=== PATIENT | male | born 1945 | race Caucasian/White ===

== ENCOUNTER → 2016-06-25 | Outpatient (CLI) | payer MEDICARE, BC | LOC: MW.CHORTHO 08:00 | PROVIDERS: ATTEND Physician Assistant | DX: M75.42 Impingement syndrome of left shoulder (principal); M75.41 Impingement syndrome of right shoulder | CPT/HCPCS: 20610-50; G0463; J1040 ==

== ENCOUNTER 2017-06-26 16:15 | Inpatient (IN) | payer MEDICARE, BC ==
[2017-06-26] MEDS ORDERED: Albuterol 0.083% 2.5 MG/3 ML Neb Soln NEB PRN (16:23)
[2017-06-26] MEDS ORDERED: Sodium Chloride 0.9% 2.5 ML Syringe FLUSH PRN (16:23)
[2017-06-26] MEDS ORDERED: Metoprolol Tartrate 5 MG/5 ML SDV IVPUSH ONE (16:58)
[2017-06-26] MEDS ORDERED: Metoprolol Tartrate 25 MG Tab PO SCH (17:00)
--- NOTE | 2017-06-26 17:10 | PCM.HP ---
H&P History of Present Illness - General Date of Service: 06/26/17 Admit Problem/Dx: Admission Diagnosis/Problem Admission Diagnosis/Problem Acute kidney injury Source of Information: Patient, Family ( at bedside), Old Records (Dr Camarillo clinic records.) History Limitations: Reports: No Limitations - History of Present Illness Initial Comments - Free Text/Narative: This 71 year old male with pmh of CAD, afib with LBBB, CABG 03/2017 with post CABG EF of 40%, systolic CHF and elevated RV pressures and large L sided pleural effusion was admitted directly from Dr Camarillo's clinic secondary to BIPIN and elevated LFTs. He also reports L sided and mid sternal rib cage pain , which has been present since CABG in March. It worsens with coughing and any movement of his trunk or palpation of his chest. Sharp in nature. The dyspnea has worsened over the last week and is now unable to walk short distances. He was switched from Lasix to Bumex due to ineffectiveness and some hearing changes. He feels very dry, with dry mouth and throat. He denies lightheadedness, dizziness or palpitations, no abdominal pain or troubles urinating. No black or bloody BMs. No fevers recently. Cough produces only clear phlegm. Labwork obtained 06/25 revealed BUN 22 and Cr 2.2, Na 143, K+ 2.9, ALT 122, AST 142 and Alk phos 235, BNP 974. CXR obtained today 06/26 revealed moderate to large L sided pleural effusion, unchanged from 06/16/17. Upon arrival to Med/Surg HR ausculated in 150s. EKG obtained which revealed Afib rates 130 with LBBB. he denies palpitations or feeling of HR elevated. No dizziness. - Related Data Allergies/Adverse Reactions: Allergies Allergy/AdvReac Type Severity Reaction Status Date / Time No Known Allergies Allergy Verified 06/26/17 17:55 Home Medications: Home Meds Aspirin 81 mg PO DAILY 06/26/17 [History] ClonazePAM [KlonoPIN] 0.5 mg PO BEDTIME 06/26/17 [History] Pantoprazole Sodium 40 mg PO DAILY 06/26/17 [History] traMADol HCl [Tramadol HCl] 50 mg PO TID PRN 06/26/17 [History] Past Medical History Cardiovascular History: Reports: Afib, Bypass (03/2017), CAD, Heart Failure, High Cholesterol, Hypertension Respiratory History: Reports: SOB (exertional) Gastrointestinal History: Reports: GERD Genitourinary History: Reports: None Musculoskeletal History: Reports: Arthritis Psychiatric History: Reports: Anxiety Endocrine/Metabolic History: Denies: Diabetes, Type II Hematologic History: Reports: Anticoagulation Therapy (Xarelto) - Past Surgical History Cardiovascular Surgical History: Reports: Cardiac Ablation, Coronary Artery Bypass Social & Family History - Tobacco Use Smoking Status *Q: Never Smoker - Alcohol Use Alcohol Use History: No - Recreational Drug Use Recreational Drug Use: No - Living Situation & Occupation Living situation: Reports: Occupation: Retired H&P Review of Systems - Review of Systems: Review Of Systems: See Below General: Reports: Malaise, Fatigue. Denies: Fever, Chills HEENT: Reports: No Symptoms. Denies: Headaches, Sinus Congestion, Sore Throat, Vertigo Pulmonary: Reports: Shortness of Breath, Cough, Sputum (clear). Denies: Hemoptysis Cardiovascular: Reports: Chest Pain (with movement of trunk and coughing to bilateral rib cage), Dyspnea on Exertion, Edema (BLE). Denies: Palpitations Gastrointestinal: Reports: No Symptoms. Denies: Abdominal Pain, Black Stool, Bloody Stool, Diarrhea, Nausea, Vomiting Genitourinary: Reports: No Symptoms. Denies: Dysuria, Frequency, Burning, Pain Musculoskeletal: Reports: No Symptoms. Denies: Neck Pain Skin: Reports: No Symptoms. Denies: Erythema Psychiatric: Reports: Anxiety Neurological: Reports: No Symptoms Hematologic/Lymphatic: Reports: No Symptoms Immunologic: Reports: No Symptoms Exam - Exam Exam: See Below - Exam Quality Assessment: DVT Prophylaxis (SCDs only) General: Alert, Oriented, Cooperative HEENT: Conjunctiva Clear, Pupils Reactive. No: Mucosa Moist & [place] (dry) Neck: Supple, Trachea Midline, 2 Lungs: Decreased Breath Sounds (to L lower lobe) Cardiovascular: Normal S1, Normal S2, Irregular Rhythm, Tachycardia (rates 150s) GI/Abdominal Exam: Normal Bowel Sounds, Soft, Non-Tender, No Organomegaly, No Distention, No Abnormal Bruit, No Mass, Pelvis Stable Extremities: Normal Inspection, Normal Range of Motion, Pedal Edema (+2-3 pitting edema extending from bilateral hips to feet) Skin: Other (well healed sternal incision and chest tube sites. this is where chest pain is located and hurts with palpation.) Neurological: Cranial Nerves Intact Neuro Extensive - Mental Status: Alert, Oriented x3, Normal Mood/Affect, Normal Cognition Neuro Extensive - Motor, Sensory, Reflexes: CN II-XII Intact Psychiatric: Alert, Anxious - Patient Data Result Diagrams: 06/26/17 17:00 06/26/17 17:00 EKG INTERPRETATION EKG Date: 06/26/17 Rhythm: A-Fib Rate (Beats/Min): 130 QRS: LBBB Comparison: No Change *Q Meaningful Use (ADM) - VTE Risk Assess *Q Each Risk Factor Represents 1 Point: Congestive heart failure (CHF) Total Score 1 Point Risk Factors: 1 Each Risk Factor Represents 2 Points: Age 60 - 74 Years Total Score 2 Point Risk Factors: 2 Each Risk Factor Represents 3 Points: None Total Score 3 Point Risk Factors: 0 Each Risk Factor Represents 5 Points: None Total Score 5 Point Risk Factors: 0 Venous Thromboembolism Risk Factor Score *Q: 3 - Problem List (1) BIPIN (acute kidney injury) SNOMED Code(s): 59828553 ICD Code: N17.9 - ACUTE KIDNEY FAILURE, UNSPECIFIED Status: Acute Current Visit: Yes (2) Chronic atrial fibrillation with RVR SNOMED Code(s): 803115439, 058725636192192 ICD Code: I48.2 - CHRONIC ATRIAL FIBRILLATION Status: Acute Current Visit : Yes (3) Dyspnea SNOMED Code(s): 753582707 ICD Code: R06.00 - DYSPNEA, UNSPECIFIED Status: Acute Current Visit: Yes (4) Pleural effusion SNOMED Code(s): 15743729 ICD Code: J90 - PLEURAL EFFUSION, NOT ELSEWHERE CLASSIFIED Status: Acute Current Visit: Yes (5) Elevated LFTs SNOMED Code(s): 452034372, 094156532 ICD Code: R79.89 - OTHER SPECIFIED ABNORMAL FINDINGS OF BLOOD CHEMISTRY Status: Acute Current Visit: Yes (6) Anxiety SNOMED Code(s): 60405779 ICD Code: F41.9 - ANXIETY DISORDER, UNSPECIFIED Status: Chronic Current Visit: Yes (7) CAD (coronary artery disease) SNOMED Code(s): 65135082 ICD Code: I25.10 - ATHSCL HEART DISEASE OF [place] CORONARY ARTERY W/O ANG PCTRS Status: Chronic Current Visit: Yes (8) Hx of CABG SNOMED Code(s): 785357275, 969724246 ICD Code: Z95.1 - PRESENCE OF AORTOCORONARY BYPASS GRAFT Status: Chronic Current Visit: Yes (9) Depression SNOMED Code(s): 99624338 ICD Code: F32.9 - MAJOR DEPRESSIVE DISORDER, SINGLE EPISODE, UNSPECIFIED Status: Chronic Current Visit: Yes (10) Chronic a-fib SNOMED Code(s): 858889711 ICD Code: I48.2 - CHRONIC ATRIAL FIBRILLATION Status: Acute Current Visit : Yes (11) Ischemic dilated cardiomyopathy SNOMED Code(s): 616705880 ICD Code: I25.5 - ISCHEMIC CARDIOMYOPATHY; I42.0 - DILATED CARDIOMYOPATHY Status: Chronic Current Visit: Yes (12) Musculoskeletal chest pain SNOMED Code(s): 431138833 ICD Code: R07.89 - OTHER CHEST PAIN Status: Chronic Current Visit: Yes (13) HTN (hypertension) SNOMED Code(s): 45309451 ICD Code: I10 - ESSENTIAL (PRIMARY) HYPERTENSION Status: Chronic Current Visit: Yes Qualifiers: Hypertension type: essential hypertension Qualified Code(s): I10 - Essential (primary) hypertension (14) CHF (congestive heart failure) SNOMED Code(s): 18306187 ICD Code: I50.9 - HEART FAILURE, UNSPECIFIED Status: Chronic Current Visit: Yes Qualifiers: Heart failure type: systolic Heart failure chronicity: chronic Qualified Code(s): I50.22 - Chronic systolic (congestive) heart failure Problem List Initiated/Reviewed/Updated: Yes Orders Last 24hrs: Active Orders 24 hr Category Date Time Status Patient Status [ADT] Routine ADT 06/26/17 16:23 Ordered EKG 12 Lead [EKG Documentation Completion] [RC] STAT Care 06/26/17 17:01 Ordered Height and Weight [RC] DAILY Care 06/26/17 16:23 Ordered Intake and Output Strict [RC] ASDIRECTED Care 06/26/17 16:32 Ordered Intake and Output [RC] QSHIFT Care 06/26/17 16:24 Inactive Oxygen Therapy [RC] PRN Care 06/26/17 16:23 Ordered RT Aerosol Therapy [RC] ASDIRECTED Care 06/26/17 16:30 Ordered Telemetry Monitoring [Cardiac Monitoring] [RC] . Care 06/26/17 17:02 Ordered DIRECTED Up With Assistance [RC] ASDIRECTED Care 06/26/17 16:23 Ordered VTE/DVT Education [RC] PER UNIT ROUTINE Care 06/26/17 16:23 Ordered Vital Signs [RC] Q4H Care 06/26/17 16:23 Ordered 2 Gram Sodium Diet [DIET] Diet 06/26/17 Dinner Ordered Chest wo Cont [CT] Urgent Exams 06/26/17 16:23 Ordered Echo Comp wo Cont [US] Routine Exams 06/26/17 16:23 Ordered Thoracentesis W/ US Guide [US] Routine Exams 06/26/17 17:03 Ordered CBC WITH AUTO DIFF [HEME] Routine Lab 06/26/17 16:23 Ordered COMPREHENSIVE METABOLIC PN,CMP [CHEM] Routine Lab 06/26/17 16:23 Ordered Albuterol [Proventil Neb Soln] Med 06/26/17 16:23 Ordered 2.5 mg NEB Q2H PRN Metoprolol Tartrate [Lopressor] Med 06/26/17 17:00 Ordered 25 mg PO Q12HR Ondansetron [Zofran] Med 06/26/17 16:23 Ordered 4 mg IVPUSH Q4H PRN Sodium Chloride 0.9% [Normal Saline] 1,000 ml Med 06/26/17 16:30 Ordered IV ASDIRECTED Sodium Chloride 0.9% [Saline Flush] Med 06/26/17 16:23 Ordered 2.5 ml FLUSH ASDIRECTED PRN oxyCODONE Med 06/26/17 16:59 Ordered 5 mg PO Q6H PRN Saline Lock Insert [OM.PC] Routine Oth 06/26/17 16:23 Ordered Sequential Compression Device [OM.PC] Per Unit Routine Oth 06/26/17 16:24 Ordered Resuscitation Status Routine Resus Stat 06/26/17 17:03 Ordered Medication Orders Albuterol (Proventil Neb Soln) 2.5 mg NEB Q2H PRN PRN Reason: Shortness Of Breath/wheezing Sodium Chloride (Normal Saline) 1,000 mls @ 75 mls/hr IV ASDIRECTED SANDRO Metoprolol Tartrate (Lopressor) 25 mg PO Q12HR SANDRO Ondansetron HCl (Zofran) 4 mg IVPUSH Q4H PRN PRN Reason: Nausea Oxycodone HCl (Oxycodone) 5 mg PO Q6H PRN PRN Reason: Pain Sodium Chloride (Saline Flush) 2.5 ml FLUSH ASDIRECTED PRN PRN Reason: Keep Vein Open Assessment/Plan Comment:: This 71 year old male admitted with BIPIN secondary to diuretic use with pmh of CAD, CHF, Afib, and L sided pleural effusion 1. BIPIN: likely secondary to over diuresis. Will hold Bumex. Gentle hydration with NS 75. BUN 22 Cr 2.4, baseline near 1.3. 2. Chronic Afib with RVR: HR on admission elevated 130-150s, asymptomatic. Spoke with Dr Camarillo. Recommended Lopressor, reports he had reaction to this and it was stopped, unknown reaction, will check records at [place]. Consulted with Dr Xu johnston, Ok to give Diltiazem 10 mg IV PRN and recommended to start Coreg 3.125 mg BID tonight. Monitor on telemetry. K+ 2.6, will give 40 po now and 40 IV in 500 ml NS this evening, Magnesium pending. Holding Xarelto due to elevated LFTs. HR improved to 80s after IV Diltiazem. 3. CHF: EF 40% post CABG. Will obtain new ECHO during admission. Continues to have BLE edema, but very intravascularly dry. 4. Dyspnea/L sided pleural effusion: Will have thoracentesis tomorrow. Chest CT without contrast this evening, pending. 5. Elevated LFTs: Hold Crestor and Xarelto for now. Will monitor daily. AST 266 , ALT 211, Bilirubin 1.2 and Alk phos 240. 6. Anxiety/Depression: Continue Clonazepam. Monitor 7. CAD: Stable: ECHO pending. Holding Statin due to elevated LFTs. Hx CABG. Will monitor. 8. Musculoskeletal chest pain: Secondary to CABG, reports Tramadol not working at home. Unable to give NSAIDs or Tylenol. Will trial Oxycodone 5 mg and monitor. patient and request NO Morphine. VTE prophylaxis: Holding Xarelto. SCDs for now. Dispo: 2-3 days pending improvement.
[2017-06-26] MEDS ORDERED: Diltiazem 25 MG/5 ML SDV IVPUSH ONE (17:18)
[2017-06-26] MEDS ORDERED: Diltiazem 25 MG/5 ML SDV IVPUSH PRN (17:19)
[2017-06-26] MEDS: oxyCODONE 5 MG Tab PO PRN ×2 (17:36→23:54)
[2017-06-26 17:46] LABS: CHLORIDE,CL 99 mmol/L (98-107); SODIUM,NA 138 mmol/L (136-148)
[2017-06-26] MEDS ORDERED: Magnesium Sulfate/Water 2 GM in Premix Bag 1 BAG IV ONE (18:09)
[2017-06-26] MEDS ORDERED: Potassium Chloride 40 MEQ in Sodium Chloride 0.9% 500 ML IV SCH (18:15)
[2017-06-26] MEDS: Potassium Chloride 20 MEQ Tab.ER PO SCH ×2 (18:19→21:44)
[2017-06-26] MEDS: Carvedilol 3.125 MG Tab PO SCH (21:44)
[2017-06-26] MEDS: ClonazePAM 0.5 MG Tab PO SCH (21:44)
[2017-06-26] MEDS: Diltiazem 25 MG/5 ML SDV IVPUSH PRN (21:45)
[2017-06-26] MEDS: Ondansetron 4 MG/2 ML SDV IVPUSH PRN (23:52)
[2017-06-27] MEDS: Sodium Chloride 0.9% 1,000 ML IV SCH ×2 (05:12→17:52)
[2017-06-27] MEDS: Ondansetron 4 MG/2 ML SDV IVPUSH PRN ×3 (05:30→18:10)
[2017-06-27] MEDS: oxyCODONE 5 MG Tab PO PRN ×3 (05:32→20:08)
[2017-06-27] MEDS: Pantoprazole 40 MG Tab.CR PO SCH (06:54)
--- NOTE | 2017-06-27 08:07 | PCM.PN ---
- General Info Date of Service: 06/27/17 Admission Dx/Problem (Free Text): Admission Diagnosis/Problem Admission Diagnosis/Problem Acute kidney injury Subjective Update: Feeling "so-so" this morning. musculoskeletal chest pain is better controlled with Oxycodone. Coughing has decreased slightly since pain controlled better as well. Feeling a little more hydrated this morning, mouth is less dry. Functional Status: Reports: Pain Controlled, Tolerating Diet, Urinating - Review of Systems General: Reports: Malaise HEENT: Denies: Headaches, Sore Throat, Visual Changes Pulmonary: Reports: Shortness of Breath, Cough, Sputum (clear). Denies: Wheezing Cardiovascular: Reports: Chest Pain (musculoskeletal), Edema Gastrointestinal: Reports: Decreased Appetite, Nausea (intermittent). Denies: Abdominal Pain, Vomiting Genitourinary: Reports: No Symptoms. Denies: Dysuria, Frequency Musculoskeletal: Reports: No Symptoms. Denies: Neck Pain Skin: Reports: No Symptoms Neurological: Reports: No Symptoms Psychiatric: Reports: Anxiety - Patient Data Vitals - Most Recent: Last Vital Signs Temp 98.7 F 06/27/17 04:00 Pulse 95 06/27/17 04:00 Resp 22 H 06/27/17 04:00 BP 127/90 06/27/17 04:00 Pulse Ox 95 06/27/17 04:00 Weight - Most Recent: 69 kg I&O - Last 24 Hours: Intake & Output 06/26/17 06/27/17 06/27/17 22:59 06:59 14:59 Intake Total 790 Output Total 150 Balance 640 Lab Results Last 24 Hours: Laboratory Results - last 24 hr 06/26/17 06/26/17 06/26/17 Range/Units 17:00 17:00 17:00 WBC 10.44 (4.0-11.0) K/uL RBC 4.75 (4.50-5.90) M/uL Hgb 13.8 (13.0-17.0) g/dL Hct 42.4 (38.0-50.0) % MCV 89.3 (80.0-98.0) fL MCH 29.1 (27.0-32.0) pg MCHC 32.5 (31.0-37.0) g/dL RDW Std Deviation 55.2 (28.0-62.0) fl RDW Coeff of Windy 17 H (11.0-15.0) % Plt Count 220 (150-400) K/uL MPV 9.60 (7.40-12.00) fL Neut % (Auto) 70.2 (48.0-80.0) % Lymph % (Auto) 15.0 L (16.0-40.0) % [place] % (Auto) 14.5 (0.0-15.0) % Eos % (Auto) 0.1 (0.0-7.0) % Baso % (Auto) 0.2 (0.0-1.5) % Neut # (Auto) 7.3 H (1.4-5.7) K/uL Lymph # (Auto) 1.6 (0.6-2.4) K/uL [place] # (Auto) 1.5 H (0.0-0.8) K/uL Eos # (Auto) 0.0 (0.0-0.7) K/uL Baso # (Auto) 0.0 (0.0-0.1) K/uL Add Manual Diff Neutrophils % (Manual) (48.0-80.0) % Lymphocytes % (Manual) (16.0-40.0) % Monocytes % (Manual) (0.0-15.0) % Basophils % (Manual) (0.0-1.5) % Nucleated RBC % 0.0 /100WBC Absolute Seg Neuts (1.4-5.7) Lymphocytes # (Manual) (0.6-2.4) Monocytes # (Manual) (0.0-0.8) Basophils # (Manual) (0.0-0.1) Nucleated RBCs # 0 K/uL Sodium 138 (136-148) mmol/L Potassium 2.6 L (3.5-5.1) mmol/L Chloride 99 (98-107) mmol/L Carbon Dioxide 23.5 (21.0-32.0) mmol/L BUN 22 H (7.0-18.0) mg/dL Creatinine 2.4 H (0.8-1.3) mg/dL Est Cr Clr Drug Dosing TNP Estimated GFR (MDRD) 26.7 ml/min Glucose 110 H (74-106) mg/dL Calcium 9.4 (8.5-10.1) mg/dL Magnesium 1.6 (1.5-2.0) mg/dL Total Bilirubin 1.2 H (0.2-1.0) mg/dL AST 266 H (15-37) IU/L ALT 211 H (14-63) IU/L Alkaline Phosphatase 240 H (46-116) U/L Total Protein 7.1 (6.4-8.2) g/dL Albumin 3.2 L (3.4-5.0) g/dL Globulin 3.9 H (2.0-3.5) g/dL Albumin/Globulin Ratio 0.8 L (1.3-2.8) 06/27/17 06/27/17 Range/Units 05:05 05:05 WBC 8.73 (4.0-11.0) K/uL RBC 4.59 (4.50-5.90) M/uL Hgb 13.4 (13.0-17.0) g/dL Hct 41.5 (38.0-50.0) % MCV 90.4 (80.0-98.0) fL MCH 29.2 (27.0-32.0) pg MCHC 32.3 (31.0-37.0) g/dL RDW Std Deviation 55.8 (28.0-62.0) fl RDW Coeff of Windy 17 H (11.0-15.0) % Plt Count 197 (150-400) K/uL MPV 9.80 (7.40-12.00) fL Neut % (Auto) (48.0-80.0) % Lymph % (Auto) (16.0-40.0) % [place] % (Auto) (0.0-15.0) % Eos % (Auto) (0.0-7.0) % Baso % (Auto) (0.0-1.5) % Neut # (Auto) (1.4-5.7) K/uL Lymph # (Auto) (0.6-2.4) K/uL [place] # (Auto) (0.0-0.8) K/uL Eos # (Auto) (0.0-0.7) K/uL Baso # (Auto) (0.0-0.1) K/uL Add Manual Diff YES Neutrophils % (Manual) 61 (48.0-80.0) % Lymphocytes % (Manual) 22 (16.0-40.0) % Monocytes % (Manual) 16 H (0.0-15.0) % Basophils % (Manual) 1 (0.0-1.5) % Nucleated RBC % 0.0 /100WBC Absolute Seg Neuts 5.3 (1.4-5.7) Lymphocytes # (Manual) 1.9 (0.6-2.4) Monocytes # (Manual) 1.4 H (0.0-0.8) Basophils # (Manual) 0.1 (0.0-0.1) Nucleated RBCs # 0 K/uL Sodium 139 (136-148) mmol/L Potassium 3.7 (3.5-5.1) mmol/L Chloride 102 (98-107) mmol/L Carbon Dioxide 25.5 (21.0-32.0) mmol/L BUN 26 H (7.0-18.0) mg/dL Creatinine 2.4 H (0.8-1.3) mg/dL Est Cr Clr Drug Dosing 23.30 Estimated GFR (MDRD) 26.7 ml/min Glucose 111 H (74-106) mg/dL Calcium 9.0 (8.5-10.1) mg/dL Magnesium 2.4 H (1.5-2.0) mg/dL Total Bilirubin 1.1 H (0.2-1.0) mg/dL AST 483 H (15-37) IU/L ALT 331 H (14-63) IU/L Alkaline Phosphatase 205 H (46-116) U/L Total Protein 6.4 (6.4-8.2) g/dL Albumin 2.8 L (3.4-5.0) g/dL Globulin 3.6 H (2.0-3.5) g/dL Albumin/Globulin Ratio 0.8 L (1.3-2.8) Med Orders - Current: Current Medications Albuterol (Proventil Neb Soln) 2.5 mg NEB Q2H PRN PRN Reason: Shortness Of Breath/wheezing Carvedilol (Coreg) 3.125 mg PO BID [facility] Last Admin: 06/26/17 21:44 Dose: 3.125 mg Clonazepam (Klonopin) 0.5 mg PO BEDTIME [facility] Last Admin: 06/26/17 21:44 Dose: 0.5 mg Diltiazem HCl (Diltiazem) 10 mg IVPUSH Q3H PRN PRN Reason: afib HR>110 Last Admin: 06/26/17 21:45 Dose: 10 mg Sodium Chloride (Normal Saline) 1,000 mls @ 75 mls/hr IV ASDIRECTED [facility] Last Admin: 06/27/17 05:12 Dose: 75 mls/hr Ondansetron HCl (Zofran) 4 mg IVPUSH Q4H PRN PRN Reason: Nausea Last Admin: 06/27/17 05:30 Dose: 4 mg Oxycodone HCl (Oxycodone) 5 mg PO Q6H PRN PRN Reason: Pain Last Admin: 06/27/17 05:32 Dose: 5 mg Pantoprazole Sodium (Protonix) 40 mg PO DAILY@0700 [facility] Last Admin: 06/27/17 06:54 Dose: 40 mg Potassium Chloride (Klor-Con M20) 40 meq PO BID [facility] Last Admin: 06/26/17 21:44 Dose: Not Given Sodium Chloride (Saline Flush) 2.5 ml FLUSH ASDIRECTED PRN PRN Reason: Keep Vein Open Discontinued Medications Diltiazem HCl (Diltiazem) 10 mg IVPUSH ONETIME ONE Stop: 06/26/17 17:19 Last Admin: 06/26/17 17:38 Dose: 10 mg Diltiazem HCl (Diltiazem) 10 mg IVPUSH Q6H PRN PRN Reason: afib HR>110 Potassium Chloride 40 meq/ (Sodium Chloride) 520 mls @ 100 mls/hr IV .ONETIME [facility] Last Admin: 06/26/17 18:20 Dose: 100 mls/hr Magnesium Sulfate 2 gm/ Premix 50 mls @ 50 mls/hr IV ONETIME ONE Stop: 06/26/17 19:08 Last Admin: 06/26/17 18:21 Dose: 50 mls/hr Metoprolol Tartrate (Lopressor) 5 mg IVPUSH STAT ONE Stop: 06/26/17 16:59 Last Admin: 06/26/17 17:38 Dose: Not Given Metoprolol Tartrate (Lopressor) 25 mg PO Q12HR [facility] Last Admin: 06/26/17 17:39 Dose: Not Given - Exam General: Alert, Oriented, Cooperative, No Acute Distress Lungs: Clear to Auscultation, Normal Respiratory Effort Cardiovascular: Regular Rate, Irregular Rhythm GI/Abdominal Exam: Normal Bowel Sounds, Soft, Non-Tender, No Organomegaly, No Distention, No Abnormal Bruit, No Mass, Pelvis Stable Back Exam: Normal Inspection, Full Range of Motion Extremities: Normal Inspection, Normal Range of Motion, Non-Tender, Normal Capillary Refill, Pedal Edema (+3 pitting edema to BLE extending up to bilateral hips) Neurological: No New Focal Deficit Psy/Mental Status: Alert, Normal Mood, Anxious (intermittently) - Problem List & Annotations (1) BIPIN (acute kidney injury) SNOMED Code(s): 16303648 Code(s): N17.9 - ACUTE KIDNEY FAILURE, UNSPECIFIED Status: Acute Current Visit: Yes (2) Chronic atrial fibrillation with RVR SNOMED Code(s): 413342946, 715445664804717 Code(s): I48.2 - CHRONIC ATRIAL FIBRILLATION Status: Acute Current Visit : Yes (3) Dyspnea SNOMED Code(s): 701542419 Code(s): R06.00 - DYSPNEA, UNSPECIFIED Status: Acute Current Visit: Yes (4) Pleural effusion SNOMED Code(s): 07513821 Code(s): J90 - PLEURAL EFFUSION, NOT ELSEWHERE CLASSIFIED Status: Acute Current Visit: Yes (5) Elevated LFTs SNOMED Code(s): 122211654, 252646128 Code(s): R79.89 - OTHER SPECIFIED ABNORMAL FINDINGS OF BLOOD CHEMISTRY Status: Acute Current Visit: Yes (6) Anxiety SNOMED Code(s): 67638285 Code(s): F41.9 - ANXIETY DISORDER, UNSPECIFIED Status: Chronic Current Visit: Yes (7) CAD (coronary artery disease) SNOMED Code(s): 92608460 Code(s): I25.10 - ATHSCL HEART DISEASE OF [place] CORONARY ARTERY W/O ANG PCTRS Status: Chronic Current Visit: Yes (8) Hx of CABG SNOMED Code(s): 786723074, 072026968 Code(s): Z95.1 - PRESENCE OF AORTOCORONARY BYPASS GRAFT Status: Chronic Current Visit: Yes (9) Depression SNOMED Code(s): 50247735 Code(s): F32.9 - MAJOR DEPRESSIVE DISORDER, SINGLE EPISODE, UNSPECIFIED Status: Chronic Current Visit: Yes (10) Chronic a-fib SNOMED Code(s): 898333575 Code(s): I48.2 - CHRONIC ATRIAL FIBRILLATION Status: Acute Current Visit : Yes (11) Ischemic dilated cardiomyopathy SNOMED Code(s): 613691129 Code(s): I25.5 - ISCHEMIC CARDIOMYOPATHY; I42.0 - DILATED CARDIOMYOPATHY Status: Chronic Current Visit: Yes (12) Musculoskeletal chest pain SNOMED Code(s): 424543976 Code(s): R07.89 - OTHER CHEST PAIN Status: Chronic Current Visit: Yes (13) HTN (hypertension) SNOMED Code(s): 54988626 Code(s): I10 - ESSENTIAL (PRIMARY) HYPERTENSION Status: Chronic Current Visit: Yes Qualifiers: Hypertension type: essential hypertension Qualified Code(s): I10 - Essential (primary) hypertension (14) CHF (congestive heart failure) SNOMED Code(s): 27121460 Code(s): I50.9 - HEART FAILURE, UNSPECIFIED Status: Chronic Current Visit : Yes Qualifiers: Heart failure type: systolic Heart failure chronicity: chronic Qualified Code(s): I50.22 - Chronic systolic (congestive) heart failure - Problem List Review Problem List Initiated/Reviewed/Updated: Yes - My Orders Last 24 Hours: My Active Orders 06/26/17 16:23 Patient Status [ADT] Routine Height and Weight [RC] DAILY Oxygen Therapy [RC] PRN Up With Assistance [RC] ASDIRECTED Vital Signs [RC] Q4H Chest wo Cont [CT] Urgent Albuterol [Proventil Neb Soln] 2.5 mg NEB Q2H PRN Ondansetron [Zofran] 4 mg IVPUSH Q4H PRN Sodium Chloride 0.9% [Saline Flush] 2.5 ml FLUSH ASDIRECTED PRN Saline Lock Insert [OM.PC] Routine 06/26/17 16:24 Intake and Output [RC] QSHIFT Sequential Compression Device [OM.PC] Per Unit Routine 06/26/17 16:30 RT Aerosol Therapy [RC] ASDIRECTED Sodium Chloride 0.9% [Normal Saline] 1,000 ml IV ASDIRECTED 06/26/17 16:32 Intake and Output Strict [RC] ASDIRECTED 06/26/17 16:59 oxyCODONE 5 mg PO Q6H PRN 06/26/17 17:02 Telemetry Monitoring [Cardiac Monitoring] [RC] Q8H 06/26/17 17:03 Resuscitation Status Routine 06/26/17 18:11 GRACE Hose [Antiembolic Hose] [OM.PC] Routine 06/26/17 18:15 Potassium Chloride [Klor-Con M20] 40 meq PO BID 06/26/17 21:00 Carvedilol [Coreg] 3.125 mg PO BID ClonazePAM [KlonoPIN] 0.5 mg PO BEDTIME 06/26/17 Dinner 2 Gram Sodium Diet [DIET] 06/27/17 Thoracentesis W/ US Guide [US] Routine 06/27/17 07:00 Pantoprazole [ProTONIX] 40 mg PO DAILY@0700 06/27/17 08:05 Communication Order [RC] PRN 06/27/17 16:23 Echo Comp wo Cont [US] Routine 06/28/17 05:11 CBC WITH AUTO DIFF [HEME] AM COMPREHENSIVE METABOLIC PN,CMP [CHEM] AM MG [MAGNESIUM] [CHEM] AM 06/29/17 05:11 CBC WITH AUTO DIFF [HEME] AM COMPREHENSIVE METABOLIC PN,CMP [CHEM] AM MG [MAGNESIUM] [CHEM] AM 06/30/17 05:11 CBC WITH AUTO DIFF [HEME] AM COMPREHENSIVE METABOLIC PN,CMP [CHEM] AM MG [MAGNESIUM] [CHEM] AM - Plan Plan:: This 71 year old male admitted with BIPIN secondary to diuretic use with pmh of CAD, CHF, Afib, and L sided pleural effusion 1. BIPIN: possibly due to over diuresis. Will hold Bumex. Gentle hydration with NS 75. BUN 26 Cr 2.4. Continue to monitor. 2. Chronic Afib with RVR: HR improved slightly with PRN Diltiazem, Coreg 3.125 mg BID started per Dr Camarillo. HR overnight 90-110s, afib. Continue on telemetry. K+ 3.7 this morning. Mg 2.4. Holding Xarelto due to elevated LFTs. 3. CHF: EF 40% post CABG. ECHO this morning with Dr Polk await to hear results and recommendations. Continues to have severe BLE edema 4. Dyspnea/L sided pleural effusion: Will have thoracentesis today. Chest CT without contrast this evening, pending. 5. Elevated LFTs: Hold Crestor and Xarelto for now. Will monitor daily. Increased since yesterday AST 483, ALT 331, Bilirubin 1.1 and Alk phos 205. 6. Anxiety/Depression: Continue Clonazepam. Monitor 7. CAD: Stable: ECHO pending. Holding Statin due to elevated LFTs. Hx CABG. Will monitor. 8. Musculoskeletal chest pain: Secondary to CABG, reports Tramadol not working at home. Unable to give NSAIDs or Tylenol. Will trial Oxycodone 5 mg and monitor. patient and request NO Morphine. VTE prophylaxis: Holding Xarelto. SCDs for now. Dispo: 2-3 days pending improvement. Spoke with PCP, Dr Sanchez, this morning. Discussed past labwork, May 27 LFTs normal at this time along with renal function, BUN 8 and Cr 0.8. He was able to find in Dr. Hatfield records that Metoprolol was stopped December 2016 due to worsening depression. Verapamil 180 was started but they considered stopping this as well due to worsening peripheral edema. Verapamil was stopped recently per Dr Camarillo's clinic notes.
[2017-06-27] MEDS: Carvedilol 3.125 MG Tab PO SCH ×2 (09:09→20:07)
[2017-06-27] MEDS: Potassium Chloride 20 MEQ Tab.ER PO SCH ×2 (09:09→20:11)
[2017-06-27] MEDS ORDERED: ClonazePAM 0.5 MG Tab PO ONE (09:13)
--- NOTE | 2017-06-27 14:55 | CT ---
EXAM DATE: 06/26/17 PATIENT'S AGE: 71 Patient: JANNA MAGUIRE Facility: [place], [place] Site . Site : 1945 Study: CT Chest [id number]/3/2018 7:35:13 PM Ordering Physician: Roxi Boone Final Report: INDICATION: Dyspnea, pleural effusion TECHNIQUE: CT chest without i.v. contrast. Coronal and sagittal reformats were obtained. CONTRAST: None COMPARISON: None FINDINGS: Cardiovascular: Mild cardiomegaly is noted with moderate enlargement of the right atrium. Severe atherosclerotic calcifications are noted in the coronary arteries. Previous median sternotomy and placement of a left atrial appendage ligation clip. The pulmonary arteries are unremarkable in appearance. No sign of aneurysm seen in the thoracic aorta. The presence of aortic dissection cannot be evaluated without the use of intravenous contrast. Mediastinum: No mass or adenopathy seen. Lungs: Compressive atelectasis of most of the left lower lobe and lateral lingula is noted. Linear scarring is seen within the right middle lobe. Mild passive atelectasis is present in the right lung base. Pleura and pericardium: There is a large left and small right pleural effusion present. No significant pericardial effusion is present. Chest wall and axilla: No mass or adenopathy seen. Bones: Unremarkable for age. Upper abdomen: Unremarkable. IMPRESSION: 1. There is a large left and small right pleural effusion present causing compressive atelectasis of most of the left lower lobe and lateral lingula. Dictated by Blake Benavides MD @ 06/26/2017 7:54:50 PM Please note that all CT scans at this facility use dose modulation, iterative reconstruction, and/or weight-based dosing when appropriate to reduce radiation dose to as low as reasonably achievable. Dictated by: Blake Benavides MD @ 06/26/2017 19:54:54 (Electronic Signature) Report Signed by Proxy. [facility]
--- NOTE | 2017-06-27 16:15 | US ---
EXAMINATION: Ultrasound guided left thoracentesis. HISTORY: Left pleural effusion. Technique/findings: The procedure, benefits and risks were discussed with the patient. Risks include d serious bleeding, infection and pain. An adequate location was located within the left posterior lo wer thorax. The overlying area was sterilely prepped and draped. 1% lidocaine was administered for lo patsy anesthesia. Using guidance and care to place a needle on the superior aspect of the adjacent rib a 5 [place] one-step needle was advanced until fluid return was noted. Approximately 1000 mL of bloody fluid was collected. The patient did have a considerable amount of coughing following the procedure. Which did somewhat improved from before returning to the floor. IMPRESSION: Successful ultrasound guided left thoracentesis. Fluid was bloody.
[2017-06-27] MEDS: ClonazePAM 0.5 MG Tab PO SCH (21:57)
[2017-06-28] MEDS: Diltiazem 25 MG/5 ML SDV IVPUSH PRN ×2 (00:41→14:00)
[2017-06-28] MEDS: ClonazePAM 0.5 MG Tab PO SCH (01:34)
[2017-06-28] MEDS ORDERED: cefTRIAXone 1 GM in Premix Bag 1 BAG IV SCH (02:00)
[2017-06-28] MEDS ORDERED: cefTRIAXone 1 GM in Sodium Chloride 0.9% 50 ML IV SCH (03:00)
[2017-06-28] MEDS: oxyCODONE 5 MG Tab PO PRN ×2 (03:12→08:44)
[2017-06-28] MEDS: Pantoprazole 40 MG Tab.CR PO SCH (06:12)
[2017-06-28] MEDS: Sodium Chloride 0.9% 1,000 ML IV SCH (07:51)
[2017-06-28] MEDS: Carvedilol 3.125 MG Tab PO SCH (08:45)
[2017-06-28] MEDS: Potassium Chloride 20 MEQ Tab.ER PO SCH (09:21)
--- NOTE | 2017-06-28 12:46 | CONS ---
DATE OF CONSULTATION: DATE OF : 1945 PRIMARY CARE PHYSICIAN: NAMAN GILMAN MD REASON FOR CONSULTATION: Heart failure, elevation in renal function, elevation in liver function. HISTORY: This is a 71-year-old male who has a history of hypertension, hyperlipidemia, family history of CAD, permanent atrial fibrillation, and also with left bundle- branch block pattern. He was initially seeing Dr. Martinez for exertional shortness of breath without chest pain and abnormal EKG, subsequently he underwent an exercise testing showing ischemia along with anterior and apical and septal wall. Then, he underwent a coronary angiogram, this showed double-vessel disease including LAD and rami, and then he was recommended to have a CABG done which he underwent in March 2017. At that time, he had OTNIVEROS to LAD, SVG to rami as well as to diagonal and to proximal LAD. At that time, ejection fraction was about 50%. However, his ejection fraction after the CABG is noted to be 40% with elevated RVSP. While he was admitted for CABG, he also had abnormal kidney function and liver function and apparently his kidney function and liver function became normalized and he was discharged home. When I saw him in the clinic, the reason for seeing him in the clinic due to worsening leg swelling as well as the left pleural effusion. He was noted to have the left pleural effusion with [id number] size, and he underwent ultrasound-guided thoracentesis in May 2017, and then he went back home. When I saw him in the clinic, I repeated the chest x-ray and showed that his left pleural effusion has come back. The patient also noted that like he has a side effect from Lasix 80 mg with a side effect of hearing loss and that was the reason the Lasix was changed. He was at one time put on the Breo as well as prednisone due to excessive coughing and after he completed prednisone, his coughing seemed to be better. However, he still had some swelling in his legs that was the reason the Bumex 1 mg was started. When I followed up in a week's period, after Bumex was started, he has lost weight from 157 to 148. However, the repeat labs show elevation of creatinine from 1.3 to 2.2 as well as elevation of liver function tests which show ALT 122 and AST 142. That was the reason that other medications have been on hold including famotidine, Xarelto, Crestor, Bumex, and citalopram. He took Xarelto, last dose on June 25 in the morning and also taking aspirin. His swelling on his left arm came down a lot, however, the leg swelling remain unchanged. He still has irritating cough, and chest x-ray shows recurrent persistent left pleural effusion in the large size. Then I recommended him to be admitted to hospital for possible pleural tapping as well as a gentle hydration. PAST MEDICAL HISTORY: Including; 1. CAD, status post CABG with LV systolic dysfunction, decompensated heart failure, persistent left pleural effusion. 2. Hypertension. 3. Hyperlipidemia. 4. Permanent atrial fibrillation. 5. Chronic left bundle-branch block pattern. 6. LV systolic dysfunction, possibly 35%. SOCIAL HISTORY: Denies smoking, drug use or alcohol consumption. REVIEW OF SYSTEMS: Positive for chest pain, shortness of breath and some abdominal pain, leg swelling, arm swelling, weakness, coughing. ALLERGIES: He is allergic to morphine. CURRENT MEDICATIONS: Only including aspirin, clonazepam, pantoprazole, tramadol. PHYSICAL EXAMINATION: HEENT: Mildly pale. He looks dry. JVD positive. LUNGS: Decreased breath sounds on the left side and some crackle on the right side. No wheezing. HEART: Normal S1 and S2. Totally irregular. No murmur. ABDOMEN: Soft, mildly tender. No rebound tenderness. No guarding. Bowel sounds present. LEGS: Edema bilaterally. LABORATORY INVESTIGATION: CBC showed WBC 10, hematocrit of 42, hemoglobin of 13, platelets 220. Sodium 138, potassium 2.6, chloride 99, bicarb 23, BUN 22, creatinine 2.4, glucose 110, calcium 9.4, magnesium 1.6. Total bilirubin 1.2, AST 266, ALT 211. Chest x-ray showed persistent left pleural effusion, large in size. EKG shows complete left bundle with permanent atrial fibrillation. ASSESSMENT AND PLAN: This is a 71-year-old male, hypertension, hyperlipidemia, permanent atrial fibrillation, complete left bundle-branch block pattern, CAD, status post CABG, ejection fraction of 35-40%, in minute, recurrent persistent large left pleural effusion with elevation of liver function tests and creatinine. He will be undergoing the left pleural tapping with ultrasound guided; however, he took Xarelto on June 25. He talked to the radiologist, decided on when would be the right time to do the tapping. I personally think he has lost weight as well as his swelling has come down. He is on the dry side, that may be the reason why the creatinine is rising. However, his liver function is elevated, probably from his heart failure, so he would need gentle hydration, follow up with creatinine closely and also follow up his urine output as well, and I have talked to Dr. Martinez. He agrees with the plan. However, if he clinically becomes deteriorating, in other words, urine output is very poor or rising liver function tests or the kidney function, he would need a higher level of care. He would need to be transferred to the other facility for close monitoring and intensive monitoring as well as possible inotrope, possible nephrology consultation. ALYSIA REAGAN /[id number]
--- NOTE | 2017-06-28 12:56 | PCM.DCSUM1 ---
Discharge Summary - Discharge Data Discharge Date: 06/28/17 Discharge Disposition: DC/Tfer to Acute Hospital 02 Condition: Good - Patient Summary/Data Consults: Consultations 06/27/17 09:00 Consult to Physician [CONS] Routine Hospital Course: Hospital diagnosis: CHF exacerbation CAD s/p CABG in 03/2017 Acute kidney Failure UTI Elevated LFTs suprapubic pain with history kidney stones Hospital Course: This 71 year old male with pmh of CAD, afib with LBBB, CABG 2017 with post CABG EF of 40%, systolic CHF and elevated RV pressures. Who was admitted directly from Dr Camarillo's clinic secondary to BIPIN and elevated LFTs. He also reports L sided and mid sternal rib cage pain, which has been present since CABG in March. His dyspnea has worsened over the last week and is now unable to walk short distances. He was recently switched from Lasix to Bumex due to ineffectiveness and some hearing changes. He was felt to be dry by exam on admission. Labwork obtained 06/25 revealed BUN 22 and Cr 2.2, Na 143, K + 2.9, ALT 122, AST 142 and Alk phos 235, BNP 974. CXR 06/26 revealed moderate to large L sided pleural effusion, unchanged from 06/16/17. Upon arrival to Med/ Surg HR ausculated in 150s. EKG obtained which revealed Afib rates 130 with LBBB. He was given IV lopressor and started on coreg with good control of his rate. He was started on gently hydration with normal saline due to his acute kidney failure which was felt to be due to over diuresis. He had a theraputic thoracentesis in which 1000 mls of pleural fluid was drained. On his third hospital day his creatinine aaron to 3.1 and AST to 12,880. He was placed on Rocephin and vancomycin due to concerns of UTI with +2 bacteria in UA. Today he complains of suprapubic pain. He does have history of kidney stones. I am not able to get any images here as our Radiology department is down due to technical issues with buffet server. Due to his worsening kidney and heart disease Dr Gandhi and I recommended transferring to [place]. I spoke with the ER physician in [place] who has accepted the patient. Ground transportation is being arrange but family wants to wait until this afternoon to transfer to allow her daughter to arrive. - Discharge Plan Home Medications: Home Meds Aspirin 81 mg PO DAILY 06/26/17 [History] ClonazePAM [KlonoPIN] 0.5 mg PO BEDTIME 06/26/17 [History] Pantoprazole Sodium 40 mg PO DAILY 06/26/17 [History] traMADol HCl [Tramadol HCl] 50 mg PO TID PRN 06/26/17 [History] - Patient Data Vitals - Most Recent: Last Vital Signs Temp 36.3 C 06/28/17 08:00 Pulse 101 H 06/28/17 08:45 Resp 16 06/28/17 08:00 BP 130/94 H 06/28/17 08:45 Pulse Ox 93 L 06/28/17 08:00 Weight - Most Recent: 69.5 kg I&O - Last 24 hours: Intake & Output 06/27/17 06/28/17 06/28/17 22:59 06:59 14:59 Intake Total 1413 300 Output Total 0 100 Balance 1413 200 Lab Results - Last 24 hrs: Laboratory Results - last 24 hr 06/27/17 06/28/17 06/28/17 Range/Units 19:40 06:53 06:53 WBC 13.57 H (4.0-11.0) K/uL RBC 4.84 (4.50-5.90) M/uL Hgb 14.2 (13.0-17.0) g/dL Hct 43.7 (38.0-50.0) % MCV 90.3 (80.0-98.0) fL MCH 29.3 (27.0-32.0) pg MCHC 32.5 (31.0-37.0) g/dL RDW Std Deviation 56.6 (28.0-62.0) fl RDW Coeff of Windy 17 H (11.0-15.0) % Plt Count 199 (150-400) K/uL MPV 9.90 (7.40-12.00) fL Neut % (Auto) 76.5 (48.0-80.0) % Lymph % (Auto) 10.8 L (16.0-40.0) % [place] % (Auto) 12.6 (0.0-15.0) % Eos % (Auto) 0.0 (0.0-7.0) % Baso % (Auto) 0.1 (0.0-1.5) % Neut # (Auto) 10.4 H (1.4-5.7) K/uL Lymph # (Auto) 1.5 (0.6-2.4) K/uL [place] # (Auto) 1.7 H (0.0-0.8) K/uL Eos # (Auto) 0.0 (0.0-0.7) K/uL Baso # (Auto) 0.0 (0.0-0.1) K/uL Nucleated RBC % 0.0 /100WBC Nucleated RBCs # 0 K/uL Sodium 137 (136-148) mmol/L Potassium 5.2 H (3.5-5.1) mmol/L Chloride 103 (98-107) mmol/L Carbon Dioxide 18.8 L (21.0-32.0) mmol/L BUN 40 H (7.0-18.0) mg/dL Creatinine 3.1 H (0.8-1.3) mg/dL Est Cr Clr Drug Dosing 18.04 mL/min Estimated GFR (MDRD) 19.9 ml/min Glucose 114 H (74-106) mg/dL Calcium 8.8 (8.5-10.1) mg/dL Magnesium 2.4 H (1.5-2.0) mg/dL Total Bilirubin 1.1 H (0.2-1.0) mg/dL AST 1288 H (15-37) IU/L ALT 787 H (14-63) IU/L Alkaline Phosphatase 204 H (46-116) U/L Total Protein 5.8 L (6.4-8.2) g/dL Albumin 2.8 L (3.4-5.0) g/dL Globulin 3.0 (2.0-3.5) g/dL Albumin/Globulin Ratio 0.9 L (1.3-2.8) Urine Color YELLOW Urine Appearance CLOUDY Urine pH 5.5 (5.0-8.0) Ur Specific [place] >= 1.030 (1.001-1.035) Urine Protein >=300 (NEGATIVE) mg/dL Urine Glucose (UA) NEGATIVE (NEGATIVE) mg/dL Urine Ketones NEGATIVE (NEGATIVE) mg/dL Urine Occult Blood LARGE H (NEGATIVE) Urine Nitrite NEGATIVE (NEGATIVE) Urine Bilirubin SMALL H (NEGATIVE) Urine Ictotest NEGATIVE Urine Urobilinogen 0.2 (<2.0) EU/dL Ur Leukocyte Esterase NEGATIVE (NEGATIVE) Urine RBC 3-5 (0-2/HPF) Urine WBC 0-1 (0-5/HPF) Ur Epithelial Cells RARE (NONE-FEW) Amorphous Sediment MODERATE (NEGATIVE) Urine Bacteria 2+ H (NEGATIVE) Med Orders - Current: Current Medications Albuterol (Proventil Neb Soln) 2.5 mg NEB Q2H PRN PRN Reason: Shortness Of Breath/wheezing Carvedilol (Coreg) 3.125 mg PO BID [facility] Last Admin: 06/28/17 08:45 Dose: 3.125 mg Clonazepam (Klonopin) 0.5 mg PO BEDTIME [facility] Last Admin: 06/28/17 01:34 Dose: 0.5 mg Diltiazem HCl (Diltiazem) 10 mg IVPUSH Q3H PRN PRN Reason: afib HR>110 Last Admin: 06/28/17 00:41 Dose: 10 mg Sodium Chloride (Normal Saline) 1,000 mls @ 75 mls/hr IV ASDIRECTED [facility] Last Admin: 06/28/17 07:51 Dose: 75 mls/hr Ceftriaxone Sodium 1,000 mg/ (Sodium Chloride) 50 mls @ 100 mls/hr IV Q24H [facility] Vancomycin HCl 1 gm/ Sodium (Chloride) 250 mls @ 166.667 mls/hr IV Q24H [facility] Ondansetron HCl (Zofran) 4 mg IVPUSH Q4H PRN PRN Reason: Nausea Last Admin: 06/27/17 18:10 Dose: 4 mg Oxycodone HCl (Oxycodone) 5 mg PO Q4H PRN PRN Reason: Pain Last Admin: 06/28/17 08:44 Dose: 5 mg Pantoprazole Sodium (Protonix) 40 mg PO DAILY@0700 [facility] Last Admin: 06/28/17 06:12 Dose: 40 mg Sodium Chloride (Saline Flush) 2.5 ml FLUSH ASDIRECTED PRN PRN Reason: Keep Vein Open Vancomycin HCl (Pharmacy To Dose - Vancomycin) 1 dose .XX ASDIRECTED [facility] Discontinued Medications Clonazepam (Klonopin) 0.5 mg PO ONCALL ONE Stop: 06/27/17 09:14 Last Admin: 06/27/17 09:58 Dose: 0.5 mg Diltiazem HCl (Diltiazem) 10 mg IVPUSH ONETIME ONE Stop: 06/26/17 17:19 Last Admin: 06/26/17 17:38 Dose: 10 mg Diltiazem HCl (Diltiazem) 10 mg IVPUSH Q6H PRN PRN Reason: afib HR>110 Potassium Chloride 40 meq/ (Sodium Chloride) 520 mls @ 100 mls/hr IV .ONETIME [facility] Last Admin: 06/26/17 18:20 Dose: 100 mls/hr Magnesium Sulfate 2 gm/ Premix 50 mls @ 50 mls/hr IV ONETIME ONE Stop: 06/26/17 19:08 Last Admin: 06/26/17 18:21 Dose: 50 mls/hr Ceftriaxone Sodium/Dextrose 1 (gm/ Premix) 50 mls @ 100 mls/hr IV Q24H [facility] Last Admin: 06/28/17 03:03 Dose: Not Given Ceftriaxone Sodium 1 gm/ (Sodium Chloride) 50 mls @ 100 mls/hr IV Q24H [facility] Last Admin: 06/28/17 03:17 Dose: 100 mls/hr Metoprolol Tartrate (Lopressor) 5 mg IVPUSH STAT ONE Stop: 06/26/17 16:59 Last Admin: 06/26/17 17:38 Dose: Not Given Metoprolol Tartrate (Lopressor) 25 mg PO Q12HR [facility] Last Admin: 06/26/17 17:39 Dose: Not Given Oxycodone HCl (Oxycodone) 5 mg PO Q6H PRN PRN Reason: Pain Last Admin: 06/27/17 20:08 Dose: 5 mg Potassium Chloride (Klor-Con M20) 40 meq PO BID [facility] Last Admin: 06/28/17 09:21 Dose: Not Given
[2017-06-29] MEDS ORDERED: cefTRIAXone 1,000 MG in Sodium Chloride 0.9% 50 ML IV SCH (03:00)
== END 2017-06-28 14:25 | DRG 683 ==
LOC: MW.MS 16:15
PROVIDERS: ADMIT Internal Medicine; ATTEND Internal Medicine
PROC: 0W9B3ZZ Drainage of Left Pleural Cavity, Percutaneous Approach (ICD-10-PCS; principal; 2017-06-27)
DX: N17.9 Acute kidney failure, unspecified (principal); J90 Pleural effusion, not elsewhere classified; I42.0 Dilated cardiomyopathy; I50.22 Chronic systolic (congestive) heart failure; R79.89 Other specified abnormal findings of blood chemistry; I25.10 Atherosclerotic heart disease of native coronary artery without angina pectoris; I44.7 Left bundle-branch block, unspecified; R07.81 Pleurodynia; R06.00 Dyspnea, unspecified; R10.30 Lower abdominal pain, unspecified; K21.9 Gastro-esophageal reflux disease without esophagitis; I48.2 Chronic atrial fibrillation; I25.5 Ischemic cardiomyopathy; R07.89 Other chest pain; I10 Essential (primary) hypertension; F41.8 Other specified anxiety disorders; R60.9 Edema, unspecified; E78.5 Hyperlipidemia, unspecified; Z95.1 Presence of aortocoronary bypass graft; Z79.899 Other long term (current) drug therapy; Z79.82 Long term (current) use of aspirin; Z88.5 Allergy status to narcotic agent
CPT/HCPCS: 32555; 36415; 51702; 71250; 71250-26; 80053; 81001; 83735; 85025; 87086; 93005; 93306; A9270-GY; C1729; J2405; J3370; J3475; J3480; J3490; J7040; J7050